=== PATIENT | male | born 1985 | race Caucasian/White ===

== ENCOUNTER 2018-11-22 15:05 | Emergency (ER) | payer SELFPAY ==
[~2018-11-22] VITALS: Ht 172.7 cm; Wt 104.8 kg
[2018-11-22 15:24] VITALS: BP 110/63
[2018-11-22] MEDS ORDERED: ACETAMINOPHEN 500 MG TABLET ONE (16:20)
--- NOTE | 2018-11-22 16:22 | NUR ---
PT RECEIVED ALL DC PAPERWORK AND UPON RETURN BY THIS RN PT NOT FOUND IN ROOM. PT FOUND IN LOBBY AT REGISTRATION DESK ATTEMPTING TO GET BACK IN ED REPORTING HE FORGOT TO TELL PA HE HAD A HEADACHE AND WANTED SOMEWHERE TO REST FOR 20 MIN. THIS RN, FEDERICO BURNS TO SEE PT IN LOBBY. PT MEDICATED PER PA ORDER AND DC INSTRUCTIONS COMPLETE. PT VERBALIZES UNDERSTANDING
[2018-11-22] MEDS ORDERED: ACETAMINOPHEN 500 MG TABLET PO ONE (16:30)
== END 2018-11-22 16:27 | disposition home or self-care (01) ==
LOC: ED 16:21
DX: J00 Acute nasopharyngitis [common cold] (principal); Z59.0 Homelessness
CPT/HCPCS: 99283